=== PATIENT | female | born 1950 | race Caucasian/White ===

== ENCOUNTER 2017-07-06 11:17 | Inpatient (IN) | payer MEDICARE, MEDICAID ==
[~2017-07-06] VITALS: Ht 167.6 cm; Wt 105.0 kg
[~2017-07-06 11:17] MED LIST: ARIP2TAB37 PO; DULO-31 PO; GABA-532 PO; HYDR-565 PO; LISI40TA4 PO; LORA10TA7 PO; MELO-100 PO; NORT25CA5 PO; OMEP20CA10 PO; SIMV20TA5 PO; VAL5T PO
[2017-07-06] MEDS ORDERED: normal saline 1000ML IV soln IVB ONE ×2 (11:35→12:25)
[2017-07-06 12:29] LABS: BASOPHILS % (AUTO) 0.1 % (0-1); EOSINOPHILS # (AUTO) 0.5 X10'3 (0-0.9); EOSINOPHILS % (AUTO) 1.9 % (0-6); HEMATOCRIT 41.6 % (35.0-45.0); HEMOGLOBIN 14.2 g/dl (12.0-16.0); LYMPHOCYTES # (AUTO) 1.1 X10'3 (1.1-4.8); LYMPHOCYTES % (AUTO) 4.8 % (21-51); MEAN CORPUSCULAR HGB CONC 34.1 % (33.0-36.5); MEAN CORPUSCULAR VOLUME 90.9 FL (78-98); MEAN PLATELET VOLUME 8.2 FL (7.4-10.4); MONOCYTES # (AUTO) 1.2 X10'3 (0-0.9); NEUTROPHILS # (AUTO) 20.7 X10'3 (1.8-7.7); NEUTROPHILS % (AUTO) 88.2 % (42-75); PLATELET COUNT 214 X10'3 (140-440); RED BLOOD COUNT 4.58 X10'6 (4.20-5.60); RED CELL DISTRIBUTION WIDTH 14.6 % (11.5-14.5); WHITE BLOOD COUNT 23.4 X10'3 (4.5-11.0)
[2017-07-06] MEDS ORDERED: cefTRIAXone 1g/NS 100ml IVPB 100 ML IV ONE (12:35)
[2017-07-06 12:53] LABS: ALANINE AMINOTRANSFERASE 33 U/L (12-78); ALBUMIN 2.8 G/DL (3.4-5.0); ALBUMIN/GLOBULIN RATIO 0.7 (1.1-1.5); ALKALINE PHOSPHATASE 60 IU/L (46-116); ANION GAP 17 (8-16); ASPARTATE AMINO TRANSFERASE 70 U/L (10-37); BILIRUBIN,TOTAL 0.6 MG/DL (0.1-1.0); BLOOD UREA NITROGEN 58 MG/DL (7-18); BUN/CREATININE RATIO 26.2 (6.6-38.0); CALCIUM 8.9 MG/DL (8.5-10.1); CHLORIDE 108 MMOL/L (99-107); CREATININE 2.21 MG/DL (0.40-0.90); ETHANOL < 0.010 GM/DL (0.0-0.010); GLUCOSE 151 MG/DL (70-104); MAGNESIUM 2.8 MG/DL (1.5-2.4); PHOSPHORUS 5.9 MG/DL (2.3-4.5); POTASSIUM 3.8 MMOL/L (3.5-5.1); SODIUM 145 MMOL/L (135-145); TOTAL CARBON DIOXIDE 19.7 MMOL/L (24-32); TOTAL PROTEIN 6.8 G/DL (6.4-8.2); eGFR 22 ML/MIN
[2017-07-06] MEDS ORDERED: normal saline 1000ML IV soln IV ONE (13:00)
[2017-07-06 13:06] LABS: URINE AMPHETAMINE SCREEN NEGATIVE (Neg); URINE BARBITUATE SCREEN NEGATIVE (Neg); URINE BENZODIAZEPINES SCREEN NEGATIVE (Neg); URINE CANNABINOID SCREEN NEGATIVE (Neg); URINE COCAINE SCREEN NEGATIVE (Neg); URINE METHADONE SCREEN NEGATIVE (Neg); URINE OPIATE SCREEN POSITIVE (Neg); URINE PHENCYCLIDINE SCREEN NEGATIVE (Neg)
[2017-07-06 13:31] LABS: CKMB RELATIVE INDEX 1.3 RATIO (0-2.5)
[2017-07-06 14:02] LABS: CLARITY,URINE TURBID (Clear); GLUCOSE, URINE NEGATIVE (Neg); KETONES,URINE TRACE mg/dl (Neg); LEUKOCYTE ESTERASE ,URINE MODERATE (Neg); NITRITES, URINE POSITIVE (Neg); OCCULT BLOOD,URINE LARGE (Neg); PH,URINE 5.5 (4.8-8.0); PROTEIN,URINE 100 mg/dl (Neg)
[2017-07-06 14:04] LABS: UA COLLECTION TYPE FOLEY CATH
[2017-07-06 14:06] LABS: COLOR,URINE BROWN (Yellow)
[2017-07-06 14:08] LABS: BACTERIA,URINE 4+ /HPF (Neg); MUCUS STRANDS NONE SEEN /LPF (Neg); RBC,URINE 20-50 /HPF (0-2); SQUAMOUS EPITHELIAL CELL,UR NONE SEEN /LPF (FEW); TRANSITIONAL EPI CELLS,URINE FEW /HPF; WBC CLUMPS,URINE MANY /HPF (NEGATIVE); WBC,URINE TNTC /HPF (0-4)
[2017-07-06] MEDS ORDERED: vancomycin/NS 1 GM ADD-VANTAGE 250 ML IV ONE (14:25)
[2017-07-06] MEDS: normal saline 1000ML IV soln IVB ONE ×2 (14:38→15:40)
[2017-07-06] MEDS ORDERED: magnesium 4gm in 100ml NS 100 ML IV PRN (15:00)
[2017-07-06] MEDS ORDERED: acetaminophen 325mg tablet PO PRN ×2 (15:00)
[2017-07-06] MEDS ORDERED: ondansetron/PF 4mg/2ml inj IV PRN (15:00)
[2017-07-06] MEDS ORDERED: HYDROcodone/acetaminophen 5mg/325mg tablet PO PRN (15:00)
[2017-07-06] MEDS: K and/or MAG REPLACEMENT MC SCH (15:00)
[2017-07-06] MEDS ORDERED: potassium Cl 40MEQ/NS 500ml 500 ML IV PRN ×2 (15:00)
[2017-07-06] MEDS ORDERED: potassium Cl 20 mEq SR tablet PO PRN (15:00)
[2017-07-06] MEDS ORDERED: mag hydrox/Alum hydrox/simeth 30ml oral suspension PO PRN (15:00)
[2017-07-06] MEDS ORDERED: magnesium 2GM in 50ml NS 50 ML IV PRN (15:00)
[2017-07-06] MEDS ORDERED: magnesium hydroxide 30ml (MOM) UD suspension PO PRN (15:00)
[2017-07-06] MEDS ORDERED: magnesium Cl slow-release 64mg tablet PO PRN (15:00)
[2017-07-06] MEDS: normal saline 1000ml 1,000 ML IV SCH (18:23)
[2017-07-06] MEDS ORDERED: vancomycin/NS 1 GM ADD-VANTAGE 250 ML IV SCH (20:00)
[2017-07-06] MEDS: heparin, porcine 5000 units/ml vial SQ SCH (20:29)
[2017-07-06] MEDS ORDERED: temazepam 15mg capsule PO PRN (21:00)
[2017-07-07] MEDS: normal saline 1000ml 1,000 ML IV SCH ×2 (00:59→11:49)
[2017-07-07] MEDS ORDERED: regadenoson 0.4mg/5ml syringe IV ONE (06:20)
[2017-07-07] MEDS ORDERED: aminophylline 250mg/10ml inj. IV PRN (06:20)
[2017-07-07] MEDS ORDERED: metoprolol tartrate 1mg/ml inj IV PRN (06:20)
[2017-07-07] MEDS ORDERED: nitroGLYCERIN 0.4mg SUBLingual tab SL PRN (06:20)
[2017-07-07 07:41] LABS: BASOPHILS % (AUTO) 0.3 % (0-1); EOSINOPHILS # (AUTO) 0.1 X10'3 (0-0.9); EOSINOPHILS % (AUTO) 0.5 % (0-6); HEMATOCRIT 31.4 % (35.0-45.0); HEMOGLOBIN 10.8 g/dl (12.0-16.0); LYMPHOCYTES # (AUTO) 1.3 X10'3 (1.1-4.8); LYMPHOCYTES % (AUTO) 12.2 % (21-51); MEAN CORPUSCULAR HEMOGLOBIN 30.9 PG (27.0-31.0); MEAN CORPUSCULAR HGB CONC 34.4 % (33.0-36.5); MEAN CORPUSCULAR VOLUME 89.9 FL (78-98); MEAN PLATELET VOLUME 8.3 FL (7.4-10.4); MONOCYTES # (AUTO) 0.7 X10'3 (0-0.9); NEUTROPHILS # (AUTO) 8.9 X10'3 (1.8-7.7); PLATELET COUNT 144 X10'3 (140-440); RED BLOOD COUNT 3.49 X10'6 (4.20-5.60)
[2017-07-07 07:51] LABS: INR 1.1 INR; PROTHROMBIN TIME 11.4 SECONDS (9.0-12.0)
[2017-07-07] MEDS: K and/or MAG REPLACEMENT MC SCH (08:00)
[2017-07-07] MEDS: cefTRIAXone 1g/NS 100ml IVPB 100 ML IV SCH (08:00)
[2017-07-07] MEDS: heparin, porcine 5000 units/ml vial SQ SCH ×2 (08:00→20:30)
[2017-07-07 08:03] LABS: ALBUMIN 2.2 G/DL (3.4-5.0); ANION GAP 15 (8-16); BLOOD UREA NITROGEN 40 MG/DL (7-18); BUN/CREATININE RATIO 36.7 (6.6-38.0); CALCIUM 7.5 MG/DL (8.5-10.1); CHLORIDE 114 MMOL/L (99-107); CREATININE 1.09 MG/DL (0.40-0.90); GLUCOSE 93 MG/DL (70-104); MAGNESIUM 2.1 MG/DL (1.5-2.4); POTASSIUM 3.7 MMOL/L (3.5-5.1); SODIUM 148 MMOL/L (135-145); TOTAL CARBON DIOXIDE 18.7 MMOL/L (24-32); eGFR 50 ML/MIN
[2017-07-07 09:20] VITALS: BP 136/67
[2017-07-07 11:00] VITALS: BP 135/72
[2017-07-07] MEDS: HYDROcodone/acetaminophen 10/325mg tab PO PRN ×3 (11:42→20:29)
[2017-07-07 15:00] VITALS: BP 126/69
[2017-07-07 19:00] VITALS: BP 146/81
[2017-07-07] MEDS ORDERED: LORazepam 1 MG tablet PO ONE (19:55)
[2017-07-07] MEDS ORDERED: HYDROmorphone inj. 0.5 MG/0.5 ML DISP.SYRIN IM ONE (19:55)
[2017-07-07] MEDS ORDERED: morphine 4 MG/ML inj SYRINge IV PRN (20:05)
[2017-07-07] MEDS: nortriptyline 25mg capsule PO SCH (20:29)
[2017-07-07] MEDS: gabapentin 300mg capsule PO SCH (20:29)
[2017-07-07 23:00] VITALS: BP 97/60
[2017-07-08] VITALS (16 sets, daily range): BP systolic 98–199; BP diastolic 63–99
[2017-07-08] MEDS: HYDROcodone/acetaminophen 10/325mg tab PO PRN ×2 (03:18→21:22)
[2017-07-08] MEDS: LORazepam 1 MG tablet PO PRN (05:21)
[2017-07-08 05:44] LABS: BASOPHILS % (AUTO) 0.3 % (0-1); EOSINOPHILS # (AUTO) 0.2 X10'3 (0-0.9); EOSINOPHILS % (AUTO) 2.3 % (0-6); HEMATOCRIT 29.2 % (35.0-45.0); LYMPHOCYTES # (AUTO) 1.4 X10'3 (1.1-4.8); LYMPHOCYTES % (AUTO) 15.3 % (21-51); MEAN CORPUSCULAR HEMOGLOBIN 31.1 PG (27.0-31.0); MEAN CORPUSCULAR HGB CONC 34.4 % (33.0-36.5); MEAN CORPUSCULAR VOLUME 90.3 FL (78-98); MEAN PLATELET VOLUME 8.9 FL (7.4-10.4); MONOCYTES # (AUTO) 0.7 X10'3 (0-0.9); MONOCYTES % (AUTO) 8.3 % (2-12); NEUTROPHILS # (AUTO) 6.6 X10'3 (1.8-7.7); NEUTROPHILS % (AUTO) 73.8 % (42-75); PLATELET COUNT 143 X10'3 (140-440); RED BLOOD COUNT 3.23 X10'6 (4.20-5.60); RED CELL DISTRIBUTION WIDTH 14.5 % (11.5-14.5); WHITE BLOOD COUNT 8.9 X10'3 (4.5-11.0)
[2017-07-08 05:54] LABS: INR 1.1 INR; PROTHROMBIN TIME 11.1 SECONDS (9.0-12.0)
[2017-07-08 06:06] LABS: ALBUMIN 2.1 G/DL (3.4-5.0); ANION GAP 12 (8-16); BLOOD UREA NITROGEN 25 MG/DL (7-18); BUN/CREATININE RATIO 29.4 (6.6-38.0); CALCIUM 7.7 MG/DL (8.5-10.1); CHLORIDE 113 MMOL/L (99-107); CREATININE 0.85 MG/DL (0.40-0.90); GLUCOSE 94 MG/DL (70-104); MAGNESIUM 2.1 MG/DL (1.5-2.4); POTASSIUM 3.4 MMOL/L (3.5-5.1); SODIUM 144 MMOL/L (135-145); TOTAL CARBON DIOXIDE 19.5 MMOL/L (24-32); eGFR 67 ML/MIN
[2017-07-08] MEDS: K and/or MAG REPLACEMENT MC SCH (08:00)
[2017-07-08] MEDS: morphine 4 MG/ML inj SYRINge IV PRN (08:54)
[2017-07-08] MEDS ORDERED: aminophylline inj. 10 ML IV ONE (09:21)
[2017-07-08] MEDS ORDERED: regadenoson 0.4mg/5ml syringe IV ONE (09:21)
[2017-07-08] MEDS: cefTRIAXone 1g/NS 100ml IVPB 100 ML IV SCH (11:54)
[2017-07-08] MEDS: duloxetine 30mg CAPSULE.DR PO SCH (11:55)
[2017-07-08] MEDS: pantoprazole 40mg Tablet.DR PO SCH (11:56)
[2017-07-08] MEDS: lisinopril 20mg tablet PO SCH (11:56)
[2017-07-08] MEDS: gabapentin 300mg capsule PO SCH ×3 (11:57→21:15)
[2017-07-08] MEDS: heparin, porcine 5000 units/ml vial SQ SCH ×2 (12:04→21:15)
[2017-07-08] MEDS: potassium Cl 20 mEq SR tablet PO PRN ×2 (13:15→17:30)
[2017-07-08] MEDS: lactobacillus rhamnosus 10,000 MMU CELLS/CAPSULE PO SCH (21:15)
[2017-07-08] MEDS: nortriptyline 25mg capsule PO SCH (21:15)
[2017-07-08] MEDS ORDERED: VANCOMYCIN LEVEL IV NR (21:30)
[2017-07-09] VITALS (8 sets, daily range): BP systolic 139–186; BP diastolic 52–97
[2017-07-09] MEDS: potassium Cl 20 mEq SR tablet PO PRN (00:01)
[2017-07-09] MEDS: HYDROcodone/acetaminophen 10/325mg tab PO PRN ×3 (03:11→21:21)
[2017-07-09] MEDS: LORazepam 1 MG tablet PO PRN ×2 (04:07→14:00)
[2017-07-09 06:03] LABS: BASOPHILS % (AUTO) 0.3 % (0-1); EOSINOPHILS # (AUTO) 0.3 X10'3 (0-0.9); EOSINOPHILS % (AUTO) 4.1 % (0-6); HEMATOCRIT 28.3 % (35.0-45.0); HEMOGLOBIN 9.9 g/dl (12.0-16.0); LYMPHOCYTES # (AUTO) 1.2 X10'3 (1.1-4.8); LYMPHOCYTES % (AUTO) 17.4 % (21-51); MEAN CORPUSCULAR VOLUME 88.8 FL (78-98); MEAN PLATELET VOLUME 8.9 FL (7.4-10.4); MONOCYTES # (AUTO) 0.7 X10'3 (0-0.9); MONOCYTES % (AUTO) 9.8 % (2-12); NEUTROPHILS # (AUTO) 4.6 X10'3 (1.8-7.7); NEUTROPHILS % (AUTO) 68.4 % (42-75); PLATELET COUNT 155 X10'3 (140-440); RED BLOOD COUNT 3.19 X10'6 (4.20-5.60); RED CELL DISTRIBUTION WIDTH 14.6 % (11.5-14.5); WHITE BLOOD COUNT 6.7 X10'3 (4.5-11.0)
[2017-07-09 06:12] LABS: PROTHROMBIN TIME 10.8 SECONDS (9.0-12.0)
[2017-07-09 06:20] LABS: ALBUMIN 2.2 G/DL (3.4-5.0); ANION GAP 9 (8-16); BLOOD UREA NITROGEN 17 MG/DL (7-18); BUN/CREATININE RATIO 21.5 (6.6-38.0); CALCIUM 7.7 MG/DL (8.5-10.1); CHLORIDE 111 MMOL/L (99-107); CREATININE 0.79 MG/DL (0.40-0.90); GLUCOSE 101 MG/DL (70-104); MAGNESIUM 1.9 MG/DL (1.5-2.4); POTASSIUM 3.6 MMOL/L (3.5-5.1); SODIUM 142 MMOL/L (135-145); TOTAL CARBON DIOXIDE 22.2 MMOL/L (24-32); eGFR 73 ML/MIN
[2017-07-09] MEDS: K and/or MAG REPLACEMENT MC SCH (08:00)
[2017-07-09] MEDS: lisinopril 20mg tablet PO SCH (09:33)
[2017-07-09] MEDS: pantoprazole 40mg Tablet.DR PO SCH (09:33)
[2017-07-09] MEDS: lactobacillus rhamnosus 10,000 MMU CELLS/CAPSULE PO SCH ×2 (09:33→21:22)
[2017-07-09] MEDS: duloxetine 30mg CAPSULE.DR PO SCH (09:33)
[2017-07-09] MEDS: gabapentin 300mg capsule PO SCH ×3 (09:33→21:22)
[2017-07-09] MEDS: heparin, porcine 5000 units/ml vial SQ SCH ×2 (09:34→21:22)
[2017-07-09] MEDS: cefTRIAXone 1g/NS 100ml IVPB 100 ML IV SCH (09:36)
[2017-07-09] MEDS ORDERED: pneumococcal 23-VAL P-sac vacc 25 mcg/0.5ml vial IMVAC ONE (10:00)
[2017-07-09] MEDS ORDERED: FLU VACC QS2017-18 36MOS UP/PF 60 MCG/0.5 ML SYRINGE IMVAC ONE (10:00)
[2017-07-09] MEDS: sennosides/docusate sodium tablet PO SCH (17:42)
[2017-07-09] MEDS: nortriptyline 25mg capsule PO SCH (21:22)
[2017-07-09] MEDS: morphine 4 MG/ML inj SYRINge IV PRN (23:51)
[2017-07-10] VITALS (7 sets, daily range): BP systolic 148–197; BP diastolic 65–105
[2017-07-10] MEDS: HYDROcodone/acetaminophen 10/325mg tab PO PRN ×3 (04:47→21:13)
[2017-07-10 06:45] LABS: BASOPHILS % (AUTO) 0.5 % (0-1); EOSINOPHILS # (AUTO) 0.4 X10'3 (0-0.9); EOSINOPHILS % (AUTO) 6.3 % (0-6); HEMOGLOBIN 9.8 g/dl (12.0-16.0); LYMPHOCYTES # (AUTO) 1.1 X10'3 (1.1-4.8); MEAN CORPUSCULAR HEMOGLOBIN 30.4 PG (27.0-31.0); MEAN CORPUSCULAR HGB CONC 33.9 % (33.0-36.5); MEAN CORPUSCULAR VOLUME 89.8 FL (78-98); MEAN PLATELET VOLUME 9.3 FL (7.4-10.4); MONOCYTES # (AUTO) 0.6 X10'3 (0-0.9); MONOCYTES % (AUTO) 10.6 % (2-12); NEUTROPHILS # (AUTO) 3.5 X10'3 (1.8-7.7); NEUTROPHILS % (AUTO) 62.6 % (42-75); PLATELET COUNT 187 X10'3 (140-440); RED BLOOD COUNT 3.23 X10'6 (4.20-5.60); RED CELL DISTRIBUTION WIDTH 14.4 % (11.5-14.5); WHITE BLOOD COUNT 5.6 X10'3 (4.5-11.0)
[2017-07-10 06:49] LABS: PROTHROMBIN TIME 10.5 SECONDS (9.0-12.0)
[2017-07-10 06:54] LABS: ALBUMIN 2.2 G/DL (3.4-5.0); ANION GAP 11 (8-16); BLOOD UREA NITROGEN 12 MG/DL (7-18); BUN/CREATININE RATIO 17.4 (6.6-38.0); CALCIUM 8.1 MG/DL (8.5-10.1); CHLORIDE 108 MMOL/L (99-107); CREATININE 0.69 MG/DL (0.40-0.90); GLUCOSE 96 MG/DL (70-104); MAGNESIUM 1.9 MG/DL (1.5-2.4); POTASSIUM 3.6 MMOL/L (3.5-5.1); SODIUM 142 MMOL/L (135-145); TOTAL CARBON DIOXIDE 23.3 MMOL/L (24-32); eGFR 85 ML/MIN
[2017-07-10 07:23] LABS: HEMOGLOBIN A1C 6.1 % (4.5-6.2)
[2017-07-10] MEDS: sennosides/docusate sodium tablet PO SCH (08:00)
[2017-07-10] MEDS: K and/or MAG REPLACEMENT MC SCH (08:00)
[2017-07-10] MEDS: cefTRIAXone 1g/NS 100ml IVPB 100 ML IV SCH (08:43)
[2017-07-10] MEDS: lactobacillus rhamnosus 10,000 MMU CELLS/CAPSULE PO SCH ×2 (08:47→20:27)
[2017-07-10] MEDS: heparin, porcine 5000 units/ml vial SQ SCH ×2 (08:47→20:27)
[2017-07-10] MEDS: lisinopril 20mg tablet PO SCH (08:47)
[2017-07-10] MEDS: pantoprazole 40mg Tablet.DR PO SCH (08:47)
[2017-07-10] MEDS: gabapentin 300mg capsule PO SCH ×3 (08:47→20:27)
[2017-07-10] MEDS: duloxetine 30mg CAPSULE.DR PO SCH (08:50)
[2017-07-10] MEDS: nortriptyline 25mg capsule PO SCH (20:26)
[2017-07-11] VITALS (8 sets, daily range): BP systolic 121–193; BP diastolic 56–97
[2017-07-11] MEDS: HYDROcodone/acetaminophen 10/325mg tab PO PRN ×3 (01:20→23:47)
[2017-07-11 05:55] LABS: PROTHROMBIN TIME 10.3 SECONDS (9.0-12.0)
[2017-07-11 06:01] LABS: BASOPHILS % (AUTO) 0.7 % (0-1); EOSINOPHILS # (AUTO) 0.2 X10'3 (0-0.9); EOSINOPHILS % (AUTO) 4.5 % (0-6); HEMATOCRIT 29.3 % (35.0-45.0); HEMOGLOBIN 9.9 g/dl (12.0-16.0); LYMPHOCYTES # (AUTO) 1.3 X10'3 (1.1-4.8); LYMPHOCYTES % (AUTO) 29.6 % (21-51); MEAN CORPUSCULAR HEMOGLOBIN 30.4 PG (27.0-31.0); MEAN CORPUSCULAR HGB CONC 33.7 % (33.0-36.5); MEAN PLATELET VOLUME 9.6 FL (7.4-10.4); MONOCYTES # (AUTO) 0.5 X10'3 (0-0.9); MONOCYTES % (AUTO) 10.9 % (2-12); NEUTROPHILS # (AUTO) 2.3 X10'3 (1.8-7.7); NEUTROPHILS % (AUTO) 54.3 % (42-75); PLATELET COUNT 138 X10'3 (140-440); RED BLOOD COUNT 3.25 X10'6 (4.20-5.60); RED CELL DISTRIBUTION WIDTH 14.4 % (11.5-14.5); WHITE BLOOD COUNT 4.3 X10'3 (4.5-11.0)
[2017-07-11 06:12] LABS: ALBUMIN 2.2 G/DL (3.4-5.0); ANION GAP 11 (8-16); BLOOD UREA NITROGEN 9 MG/DL (7-18); BUN/CREATININE RATIO 13.6 (6.6-38.0); CALCIUM 8.3 MG/DL (8.5-10.1); CHLORIDE 109 MMOL/L (99-107); CREATININE 0.66 MG/DL (0.40-0.90); GLUCOSE 103 MG/DL (70-104); POTASSIUM 3.6 MMOL/L (3.5-5.1); SODIUM 145 MMOL/L (135-145); TOTAL CARBON DIOXIDE 25.4 MMOL/L (24-32); eGFR 89 ML/MIN
[2017-07-11] MEDS: gabapentin 300mg capsule PO SCH ×3 (07:47→20:01)
[2017-07-11] MEDS: duloxetine 30mg CAPSULE.DR PO SCH (07:47)
[2017-07-11] MEDS: sennosides/docusate sodium tablet PO SCH (07:47)
[2017-07-11] MEDS: lactobacillus rhamnosus 10,000 MMU CELLS/CAPSULE PO SCH ×2 (07:47→19:56)
[2017-07-11] MEDS: pantoprazole 40mg Tablet.DR PO SCH (07:47)
[2017-07-11] MEDS: lisinopril 20mg tablet PO SCH (07:47)
[2017-07-11] MEDS: heparin, porcine 5000 units/ml vial SQ SCH ×2 (07:48→19:57)
[2017-07-11] MEDS: K and/or MAG REPLACEMENT MC SCH (08:00)
[2017-07-11] MEDS: morphine 4 MG/ML inj SYRINge IV PRN ×2 (09:04→19:58)
[2017-07-11] MEDS: nortriptyline 25mg capsule PO SCH (20:01)
[2017-07-12] VITALS (8 sets, daily range): BP systolic 113–153; BP diastolic 62–94
[2017-07-12] MEDS: HYDROcodone/acetaminophen 10/325mg tab PO PRN ×3 (05:55→19:15)
[2017-07-12 06:51] LABS: PROTHROMBIN TIME 10.1 SECONDS (9.0-12.0)
[2017-07-12 06:55] LABS: ALBUMIN 2.2 G/DL (3.4-5.0); ANION GAP 8 (8-16); BLOOD UREA NITROGEN 9 MG/DL (7-18); BUN/CREATININE RATIO 12.5 (6.6-38.0); CALCIUM 8.6 MG/DL (8.5-10.1); CHLORIDE 109 MMOL/L (99-107); CREATININE 0.72 MG/DL (0.40-0.90); GLUCOSE 107 MG/DL (70-104); MAGNESIUM 1.9 MG/DL (1.5-2.4); POTASSIUM 3.6 MMOL/L (3.5-5.1); SODIUM 144 MMOL/L (135-145); TOTAL CARBON DIOXIDE 26.6 MMOL/L (24-32); eGFR 81 ML/MIN
[2017-07-12] MEDS: K and/or MAG REPLACEMENT MC SCH (08:00)
[2017-07-12] MEDS: lactobacillus rhamnosus 10,000 MMU CELLS/CAPSULE PO SCH ×2 (08:05→19:16)
[2017-07-12] MEDS: pantoprazole 40mg Tablet.DR PO SCH (08:06)
[2017-07-12] MEDS: sennosides/docusate sodium tablet PO SCH (08:06)
[2017-07-12] MEDS: lisinopril 20mg tablet PO SCH (08:07)
[2017-07-12] MEDS: gabapentin 300mg capsule PO SCH ×3 (08:07→20:50)
[2017-07-12] MEDS: duloxetine 30mg CAPSULE.DR PO SCH (08:07)
[2017-07-12] MEDS: heparin, porcine 5000 units/ml vial SQ SCH ×2 (08:09→19:17)
[2017-07-12 08:22] LABS: BASOPHILS % (AUTO) 0.5 % (0-1); EOSINOPHILS # (AUTO) 0.2 X10'3 (0-0.9); EOSINOPHILS % (AUTO) 4.6 % (0-6); HEMATOCRIT 29.8 % (35.0-45.0); HEMOGLOBIN 10.4 g/dl (12.0-16.0); LYMPHOCYTES # (AUTO) 1.2 X10'3 (1.1-4.8); LYMPHOCYTES % (AUTO) 24.5 % (21-51); MEAN CORPUSCULAR HEMOGLOBIN 30.9 PG (27.0-31.0); MEAN CORPUSCULAR HGB CONC 34.7 % (33.0-36.5); MEAN PLATELET VOLUME 8.6 FL (7.4-10.4); MONOCYTES # (AUTO) 0.6 X10'3 (0-0.9); MONOCYTES % (AUTO) 11.4 % (2-12); NEUTROPHILS # (AUTO) 2.9 X10'3 (1.8-7.7); PLATELET COUNT 269 X10'3 (140-440); RED BLOOD COUNT 3.35 X10'6 (4.20-5.60); WHITE BLOOD COUNT 4.9 X10'3 (4.5-11.0)
[2017-07-12] MEDS: morphine 4 MG/ML inj SYRINge IV PRN (09:30)
[2017-07-12] MEDS: nortriptyline 25mg capsule PO SCH (20:50)
[2017-07-13 03:00] VITALS: BP 159/71
[2017-07-13 06:00] VITALS: BP 145/65
[2017-07-13] MEDS: HYDROcodone/acetaminophen 10/325mg tab PO PRN ×3 (06:15→18:59)
[2017-07-13 06:32] LABS: BASOPHILS % (AUTO) 0.5 % (0-1); EOSINOPHILS # (AUTO) 0.2 X10'3 (0-0.9); HEMATOCRIT 29.1 % (35.0-45.0); HEMOGLOBIN 10.1 g/dl (12.0-16.0); LYMPHOCYTES % (AUTO) 22.6 % (21-51); MEAN CORPUSCULAR HEMOGLOBIN 30.6 PG (27.0-31.0); MEAN CORPUSCULAR HGB CONC 34.8 % (33.0-36.5); MEAN CORPUSCULAR VOLUME 88.1 FL (78-98); MEAN PLATELET VOLUME 8.5 FL (7.4-10.4); MONOCYTES # (AUTO) 0.6 X10'3 (0-0.9); MONOCYTES % (AUTO) 12.7 % (2-12); NEUTROPHILS # (AUTO) 2.7 X10'3 (1.8-7.7); NEUTROPHILS % (AUTO) 59.2 % (42-75); PLATELET COUNT 290 X10'3 (140-440); RED CELL DISTRIBUTION WIDTH 14.8 % (11.5-14.5); WHITE BLOOD COUNT 4.6 X10'3 (4.5-11.0)
[2017-07-13 06:46] LABS: ALBUMIN 2.3 G/DL (3.4-5.0); ANION GAP 7 (8-16); BLOOD UREA NITROGEN 11 MG/DL (7-18); BUN/CREATININE RATIO 16.2 (6.6-38.0); CALCIUM 8.5 MG/DL (8.5-10.1); CHLORIDE 109 MMOL/L (99-107); CREATININE 0.68 MG/DL (0.40-0.90); GLUCOSE 106 MG/DL (70-104); MAGNESIUM 1.9 MG/DL (1.5-2.4); POTASSIUM 3.7 MMOL/L (3.5-5.1); SODIUM 143 MMOL/L (135-145); TOTAL CARBON DIOXIDE 26.6 MMOL/L (24-32); eGFR 86 ML/MIN
[2017-07-13] MEDS: K and/or MAG REPLACEMENT MC SCH (08:00)
[2017-07-13] MEDS: sennosides/docusate sodium tablet PO SCH (08:14)
[2017-07-13] MEDS: pantoprazole 40mg Tablet.DR PO SCH (08:14)
[2017-07-13] MEDS: duloxetine 30mg CAPSULE.DR PO SCH (08:14)
[2017-07-13] MEDS: gabapentin 300mg capsule PO SCH ×3 (08:14→20:38)
[2017-07-13] MEDS: lisinopril 20mg tablet PO SCH (08:14)
[2017-07-13] MEDS: lactobacillus rhamnosus 10,000 MMU CELLS/CAPSULE PO SCH ×2 (08:14→20:38)
[2017-07-13] MEDS: heparin, porcine 5000 units/ml vial SQ SCH ×2 (08:14→20:38)
[2017-07-13] MEDS ORDERED: iohexol 350MG/ML 100ml bottle IV ONE (10:28)
[2017-07-13 11:00] VITALS: BP 146/65
[2017-07-13 15:00] VITALS: BP 131/73
[2017-07-13 18:00] VITALS: BP_SYST 136; BP_SYST 146; BP_SYST 171; BP_DIAS 66; BP_DIAS 79; BP_DIAS 87
[2017-07-13 19:57] LABS: URINE AMPHETAMINE SCREEN NEGATIVE (Neg); URINE BARBITUATE SCREEN NEGATIVE (Neg); URINE BENZODIAZEPINES SCREEN NEGATIVE (Neg); URINE CANNABINOID SCREEN NEGATIVE (Neg); URINE COCAINE SCREEN NEGATIVE (Neg); URINE METHADONE SCREEN NEGATIVE (Neg); URINE OPIATE SCREEN POSITIVE (Neg); URINE PHENCYCLIDINE SCREEN NEGATIVE (Neg)
[2017-07-13] MEDS: nortriptyline 25mg capsule PO SCH (20:38)
[2017-07-13 22:00] VITALS: BP 136/64
[2017-07-14 01:30] VITALS: BP 138/73
[2017-07-14] MEDS: HYDROcodone/acetaminophen 10/325mg tab PO PRN ×2 (04:11→12:41)
[2017-07-14 06:00] VITALS: BP 147/72
[2017-07-14] MEDS: lisinopril 20mg tablet PO SCH (07:50)
[2017-07-14] MEDS: pantoprazole 40mg Tablet.DR PO SCH (07:50)
[2017-07-14] MEDS: heparin, porcine 5000 units/ml vial SQ SCH ×2 (07:50→08:00)
[2017-07-14] MEDS: lactobacillus rhamnosus 10,000 MMU CELLS/CAPSULE PO SCH (07:50)
[2017-07-14] MEDS: sennosides/docusate sodium tablet PO SCH (07:50)
[2017-07-14] MEDS: duloxetine 30mg CAPSULE.DR PO SCH (07:50)
[2017-07-14] MEDS: gabapentin 300mg capsule PO SCH ×2 (07:50→12:41)
[2017-07-14] MEDS: K and/or MAG REPLACEMENT MC SCH (08:00)
[2017-07-14] MEDS: morphine 4 MG/ML inj SYRINge IV PRN (09:18)
[2017-07-14 12:49] VITALS: BP_SYST 143; BP_SYST 151; BP_DIAS 78; BP_DIAS 86; BP_DIAS 93
[2017-07-14 15:45] VITALS: BP_SYST 121; BP_SYST 151; BP_DIAS 64; BP_DIAS 78
== END 2017-07-14 18:25 | disposition home or self-care (01) | DRG 871 ==
LOC: ER 11:18 → ED HOLD 14:57 → EDBEDREQ 07-07 06:40 → PCU 3S 07-07 09:20
PROVIDERS: ADMIT Internal Medicine; ATTEND Family Medicine
PROC: 4A02XM4 Measurement of Cardiac Total Activity, External Approach (ICD-10-PCS; principal; 2017-07-08)
PROC: 3E073KZ Introduction of Other Diagnostic Substance into Coronary Artery, Percutaneous Approach (ICD-10-PCS; 2017-07-08)
PROC: B3251ZZ Computerized Tomography (CT Scan) of Bilateral Common Carotid Arteries using Low Osmolar Contrast (ICD-10-PCS; 2017-07-13)
PROC: B32G1ZZ Computerized Tomography (CT Scan) of Bilateral Vertebral Arteries using Low Osmolar Contrast (ICD-10-PCS; 2017-07-13)
PROC: B3201ZZ Computerized Tomography (CT Scan) of Thoracic Aorta using Low Osmolar Contrast (ICD-10-PCS; 2017-07-13)
PROC: B32S1ZZ Computerized Tomography (CT Scan) of Right Pulmonary Artery using Low Osmolar Contrast (ICD-10-PCS; 2017-07-13)
PROC: B32T1ZZ Computerized Tomography (CT Scan) of Left Pulmonary Artery using Low Osmolar Contrast (ICD-10-PCS; 2017-07-13)
PROC: B32R1ZZ Computerized Tomography (CT Scan) of Intracranial Arteries using Low Osmolar Contrast (ICD-10-PCS; 2017-07-13)
PROC: B3281ZZ Computerized Tomography (CT Scan) of Bilateral Internal Carotid Arteries using Low Osmolar Contrast (ICD-10-PCS; 2017-07-13)
DX: A41.9 Sepsis, unspecified organism (principal); G93.41 Metabolic encephalopathy; N17.9 Acute kidney failure, unspecified; E87.2 Acidosis; M62.82 Rhabdomyolysis; E44.1 Mild protein-calorie malnutrition; N39.0 Urinary tract infection, site not specified; L03.317 Cellulitis of buttock; R20.2 Paresthesia of skin; B96.20 Unspecified Escherichia coli [E. coli] as the cause of diseases classified elsewhere; F41.9 Anxiety disorder, unspecified; R32 Unspecified urinary incontinence; T14.8XXA Other injury of unspecified body region, initial encounter; E87.6 Hypokalemia; D64.9 Anemia, unspecified; E86.0 Dehydration; F32.9 Major depressive disorder, single episode, unspecified; G89.29 Other chronic pain; M54.5 Low back pain; R74.8 Abnormal levels of other serum enzymes; Z60.2 Problems related to living alone; Z88.5 Allergy status to narcotic agent; Z79.899 Other long term (current) drug therapy; Z23 Encounter for immunization; Z68.37 Body mass index [BMI] 37.0-37.9, adult
CPT/HCPCS: 36415; 70450; 70498; 71045; 74176; 78452; 80048; 80053; 80305; 80320; 81001; 82550; 82553; 82607; 82948; 83036; 83605; 83735; 84100; 84443; 84484; 85025; 85610; 87040; 87070; 87077; 87088; 87186; 87502; 87503; 90732; 93005; 93017; 93306; 93880; 96361; 96365; 97110; 97116; 97162; 97530; 99285; A4649; A6212; A6250; A6258; A6449; A9500; C1758; J0280; J0696; J1644; J2270; J3370; J7030; Q9967

== ENCOUNTER 2021-08-14 05:37 | Day surgery (SDC) | payer MEDICARE, MEDICAID ==
[2021-08-08 16:21] LABS: BASOPHILS % (AUTO) 0.5 % (0-1); EOSINOPHILS # (AUTO) 0.3 X10'3 (0-0.9); EOSINOPHILS % (AUTO) 3.4 % (0-6); LYMPHOCYTES # (AUTO) 2.7 X10'3 (1.1-4.8); LYMPHOCYTES % (AUTO) 34.5 % (21-51); MEAN CORPUSCULAR HEMOGLOBIN 30.3 PG (27.0-31.0); MEAN CORPUSCULAR HGB CONC 33.8 g/dL (33.0-36.5); MEAN CORPUSCULAR VOLUME 89.8 FL (78-98); MEAN PLATELET VOLUME 8.7 FL (7.4-10.4); MONOCYTES # (AUTO) 0.6 X10'3 (0-0.9); NEUTROPHILS # (AUTO) 4.3 X10'3 (1.8-7.7); NEUTROPHILS % (AUTO) 53.6 % (42-75); PRE OP HEMATOCRIT 40.8 % (35.0-45.0); PRE OP HEMOGLOBIN 13.8 g/dL (12.0-16.0); PRE OP PLATELET COUNT 283 X10'3 (140-440); RED BLOOD COUNT 4.55 X10'6 (4.20-5.60); RED CELL DISTRIBUTION WIDTH 13.7 % (11.5-14.5)
[2021-08-08 16:39] LABS: ALBUMIN 3.5 G/DL (3.4-5.0); ALKALINE PHOSPHATASE 75 IU/L (46-116); BLOOD UREA NITROGEN 18 MG/DL (7-18); BUN/CREATININE RATIO 20.2 (6.6-38.0); CHLORIDE 103 MMOL/L (99-107); CREATININE 0.89 MG/DL (0.40-0.90); PRE OP ALT 24 U/L (30-65); PRE OP ANION GAP 6 (8-16); PRE OP AST 26 U/L (10-37); PRE OP BILIRUB, TOTAL 0.3 MG/DL (0.0-1.0); PRE OP GLUCOSE 111 MG/DL (70-104); PRE OP POTASSIUM 3.9 MMOL/L (3.4-5.1); PRE OP SODIUM 139 MMOL/L (135-145); eGFR 63 ML/MIN
[~2021-08-14] VITALS: Ht 170.2 cm; Wt 113.4 kg
[~2021-08-14 05:37] MED LIST changes: -ARIP2TAB37 PO; +ATOR80TA PO; +BACL10TA2 PO; +CHLO25TA11 PO; +DOCUMENT DATE & TIME OF BETA-BLOCKER PO ONE; -DULO-31 PO; +DULO60CA65 PO; -GABA-532 PO; +GABA300C PO; -HYDR-565 PO; -LISI40TA4 PO; -LORA10TA7 PO; +LOSA100T57 PO; -MELO-100 PO; +METO25TA6 PO; +MULT-1085 PO; -NORT25CA5 PO; +NORT50CA5 PO; -OMEP20CA10 PO; +OMEP40CA21 PO; +OXYC1TAB17 PO; -SIMV20TA5 PO; -VAL5T PO; +cefazolin/dext.iso 2gm/50ml IV ONE; +famotidine 20mg tablet PO ONE; +ringers solution, lacted 1,000 ML IV SCH; +tranexamic acid 650mg tablet PO ONE; +vancomycin 1,500 MG in NS 300ml IV soln IV ONE
[2021-08-14] MEDS ORDERED: ketorolac trometh. 30mg/ml inj. ONE (06:53)
[2021-08-14] MEDS ORDERED: ROPIVAcaine 0.5% (5mg/ml) 30ml vial ONE (06:53)
--- NOTE | 2021-08-14 07:42 | NUR ---
PT ARRIVED TO [facility] DIAPHORETIC AND WHEEZING. PT WAS NOTED TO BE HYPOTENSIVE AND HYPOXIC. BP: 0640 81/40, 91/41 ON LEFT ARM, HR 71, O2 90%RA. [place] 0652 BP 68/35 LEFT ARM, 90/49 RIGHT ARM, HR 68, O2 SATS 89%, PT CONTINUED TO BE DIAPHORETIC. EKG WAS DONE UPON ARRIVAL TO [facility]. DR BELTRAN NOTIFIED ORDER TO CXL SURG AND SEND PT TO ER. DR RAMIREZ NOTIFIED AND IN TO SEE PT TO NOTIFY HER OF PLAN TO TRANSFER TO ER. PT AGREES WITH PLAN. REPORT CALLED TO ALTON JESUS IN ER. PT TRANSFERED TO ER VIA W/C TO ROOM 18 AT 0705.
== END 2021-08-14 07:15 | disposition home or self-care (01) ==
LOC: PAS 05:37 → EDSTATUS 09:00
PROVIDERS: ATTEND Orthopaedic Surgery
DX: M19.011 Primary osteoarthritis, right shoulder (principal); Z53.8 Procedure and treatment not carried out for other reasons; I95.9 Hypotension, unspecified; R09.02 Hypoxemia; M87.021 Idiopathic aseptic necrosis of right humerus; Z20.822 Contact with and (suspected) exposure to COVID-19; Z79.899 Other long term (current) drug therapy
CPT/HCPCS: 36415; 80053; 82948; 85025; 87081; 93005; 93970; J3370; J7040; J7120; U0003; U0005; J0690; J1885; J2795

== ENCOUNTER 2021-08-14 07:17 | Emergency (ER) | payer MEDICARE, MEDICAID ==
[~2021-08-14] VITALS: Ht 170.2 cm; Wt 116.5 kg
[~2021-08-14 07:17] MED LIST changes: -DOCUMENT DATE & TIME OF BETA-BLOCKER PO ONE; -cefazolin/dext.iso 2gm/50ml IV ONE; -famotidine 20mg tablet PO ONE; -ringers solution, lacted 1,000 ML IV SCH; -tranexamic acid 650mg tablet PO ONE; -vancomycin 1,500 MG in NS 300ml IV soln IV ONE
[2021-08-14] MEDS ORDERED: aspirin 81mg tab.chew PO ONE (08:25)
[2021-08-14] MEDS ORDERED: ringers solution, lacted 1,000 ML IV ONE (08:25)
[2021-08-14 08:38] LABS: BASOPHILS # (AUTO) 0.1 X10'3 (0-0.2); BASOPHILS % (AUTO) 0.7 % (0-1); EOSINOPHILS # (AUTO) 0.3 X10'3 (0-0.9); EOSINOPHILS % (AUTO) 2.8 % (0-6); HEMATOCRIT 38.3 % (35.0-45.0); LYMPHOCYTES # (AUTO) 2.7 X10'3 (1.1-4.8); LYMPHOCYTES % (AUTO) 24.6 % (21-51); MEAN CORPUSCULAR HEMOGLOBIN 30.7 PG (27.0-31.0); MEAN CORPUSCULAR HGB CONC 33.9 g/dL (33.0-36.5); MEAN CORPUSCULAR VOLUME 90.8 FL (78-98); MEAN PLATELET VOLUME 8.7 FL (7.4-10.4); MONOCYTES % (AUTO) 9.1 % (2-12); NEUTROPHILS # (AUTO) 6.9 X10'3 (1.8-7.7); NEUTROPHILS % (AUTO) 62.8 % (42-75); PLATELET COUNT 288 X10'3 (140-440); RED BLOOD COUNT 4.22 X10'6 (4.20-5.60); RED CELL DISTRIBUTION WIDTH 13.6 % (11.5-14.5); WHITE BLOOD COUNT 11.1 X10'3 (4.5-11.0)
[2021-08-14 08:51] LABS: ALANINE AMINOTRANSFERASE 26 U/L (12-78); ALBUMIN 3.5 G/DL (3.4-5.0); ALBUMIN/GLOBULIN RATIO 1.1 (1.1-1.5); ALKALINE PHOSPHATASE 66 IU/L (46-116); ANION GAP 8 (8-16); ASPARTATE AMINO TRANSFERASE 31 U/L (10-37); BILIRUBIN,TOTAL 0.5 MG/DL (0.1-1.0); BLOOD UREA NITROGEN 19 MG/DL (7-18); BUN/CREATININE RATIO 13.3 (6.6-38.0); CALCIUM 9.2 MG/DL (8.5-10.1); CHLORIDE 101 MMOL/L (99-107); CREATININE 1.43 MG/DL (0.40-0.90); GLUCOSE 105 MG/DL (70-104); POTASSIUM 3.8 MMOL/L (3.5-5.1); SODIUM 137 MMOL/L (135-145); TOTAL CARBON DIOXIDE 27.8 MMOL/L (24-32); TOTAL PROTEIN 6.8 G/DL (6.4-8.2); eGFR 36 ML/MIN
[2021-08-14 08:58] LABS: MAGNESIUM 2.1 MG/DL (1.5-2.4)
--- NOTE | 2021-08-14 11:02 | NUR ---
US IN ROOM
[2021-08-14 13:29] VITALS: BP 132/78
== END 2021-08-14 14:40 | disposition home or self-care (01) ==
LOC: ER 07:17
DX: I95.9 Hypotension, unspecified (principal); Z20.822 Contact with and (suspected) exposure to COVID-19; G89.29 Other chronic pain; Z56.0 Unemployment, unspecified; Z79.899 Other long term (current) drug therapy
CPT/HCPCS: 36415; 71045; 80053; 82948; 83735; 83880; 84484; 85025; 85379; 87081; 87635; 93005; 93970; 96360; 99285; C9803; J3370; J7040; J7120; U0003; U0005; J0690; J1885; J2795